=== PATIENT | male | born 1975 | race Caucasian/White ===

== ENCOUNTER 2019-01-07 11:55 | Day surgery (SDC) | payer OTHER ==
[2019-01-07] MEDS ORDERED: PROPOFOL 20 ML ×2 (15:11→15:26)
== END 2019-01-07 16:43 | disposition home or self-care (01) ==
LOC: GIL 11:55
DX: K29.50 Unspecified chronic gastritis without bleeding (principal); K20.9 Esophagitis, unspecified; K44.9 Diaphragmatic hernia without obstruction or gangrene
CPT/HCPCS: 43239; 88305; 88312